=== PATIENT | female | born 1980 | race Caucasian/White ===

== ENCOUNTER 2018-05-20 17:19 | Outpatient (REF) | payer MEDICARE, MEDICAID, SELFPAY ==
[2018-05-20 21:30] LABS: HCT 36.7 % (36.0-46.0); HGB 12.5 g/dL (12.0-15.5); Mean Corp. HGB Concentration 34.1 g/dL (32.0-36.0); Mean Corpuscular Volume 96.8 fL (80-95); Mean Platelet Volume 10.3 fL (8.0-11.0); Platelet Count 281 x1000/uL (130-400); RBC 3.79 m/cumm (4.00-5.20); White Blood Cell Count 8.63 k/cumm (4.4-10.8)
[2018-05-20 21:49] LABS: TSH (W/Ref FT4) 1.89 uIU/mL (0.358-3.74)
[2018-05-21 06:03] LABS: Vitamin D 25 Total 39.5 ng/ml (30-100)
[2018-05-21 19:38] LABS: Vitamin B12 360 pg/mL (193-986)
== END 2018-05-20 17:39 ==
LOC: NCHCN 17:19
PROVIDERS: Visit Provider Family Medicine
DX: R53.83 Other fatigue (principal); E55.9 Vitamin D deficiency, unspecified; R63.5 Abnormal weight gain; D75.89 Other specified diseases of blood and blood-forming organs
CPT/HCPCS: 82306; 85027; 82607; 84443

== ENCOUNTER 2019-04-28 17:35 | Outpatient (REF) | payer MEDICARE, MEDICAID, SELFPAY ==
[2019-04-28 21:27] LABS: HCT 36.9 % (36.0-46.0); HGB 12.3 g/dL (12.0-15.5); Mean Corp. HGB Concentration 33.3 g/dL (32.0-36.0); Mean Corpuscular Hemoglobin 32.2 pg (27.0-33.0); Mean Corpuscular Volume 96.6 fL (80-95); Platelet Count 377 x1000/uL (130-400); RBC 3.82 m/cumm (4.00-5.20); White Blood Cell Count 8.69 k/cumm (4.4-10.8)
[2019-04-28 22:06] LABS: ALT 29 U/L (14-59); AST 17 U/L (15-37); Albumin 3.9 g/dL (3.4-5.0); Alkaline Phosphatase 71 U/L (46-116); Anion Gap 9.5 mmol/L (3-11); BUN 14 mg/dL (7-18); Bilirubin, Total 0.2 mg/dL (0.2-1.0); CO2 26.5 mmol/L (21.0-32.0); CREATININE 0.82 mg/dL (0.55-1.02); Calcium 8.9 mg/dL (8.5-10.1); Chloride 107 mmol/L (98-107); Glucose 87 mg/dL (70-100); Potassium 3.7 mmol/L (3.5-5.1); Sodium 143 mmol/L (136-145); TSH 1.66 uIU/mL (0.36-3.74); Total Protein 7.3 g/dL (6.4-8.2); Vitamin B12 556 pg/mL (193-986)
[2019-04-29 05:36] LABS: Vitamin D 25 Total 34.2 ng/ml (30-100)
== END 2019-04-28 17:55 ==
LOC: NCHCN 17:35
PROVIDERS: PCP Family Medicine; Visit Provider Family Medicine
DX: R94.6 Abnormal results of thyroid function studies (principal); D75.89 Other specified diseases of blood and blood-forming organs; E55.9 Vitamin D deficiency, unspecified; E53.8 Deficiency of other specified B group vitamins; K59.00 Constipation, unspecified; E66.9 Obesity, unspecified
CPT/HCPCS: 80053; 82306; 85027; 82607; 83735; 84443

== ENCOUNTER 2020-03-07 19:11 | Outpatient (REF) | payer MEDICARE, MEDICAID, SELFPAY ==
[2020-03-07 21:12] LABS: HCT 38.3 % (36.0-46.0); HGB 12.7 g/dL (12.0-15.5); Mean Corp. HGB Concentration 33.2 g/dL (32.0-36.0); Mean Corpuscular Hemoglobin 31.1 pg (27.0-33.0); Mean Corpuscular Volume 93.6 fL (80-95); Platelet Count 355 x1000/uL (130-400); RBC 4.09 m/cumm (4.00-5.20); RBC Distribution Width 12.7 % (11.7-14.6); White Blood Cell Count 7.38 k/cumm (4.4-10.8)
[2020-03-07 22:06] LABS: ALT 26 U/L (14-59); AST 15 U/L (15-37); Alkaline Phosphatase 72 U/L (46-116); Anion Gap 12.2 mmol/L (3-11); Bilirubin, Total 0.3 mg/dL (0.2-1.0); CO2 22.8 mmol/L (21.0-32.0); CREATININE 0.63 mg/dL (0.55-1.02); Calcium 9.3 mg/dL (8.5-10.1); Chloride 105 mmol/L (98-107); Glucose 99 mg/dL (74-106); Potassium 4.4 mmol/L (3.5-5.1); Sodium 140 mmol/L (136-145); TSH (W/Ref FT4) 1.99 uIU/mL (0.36-3.74); Total Protein 7.3 g/dL (6.4-8.2); Vitamin B12 428 pg/mL (193-986)
[2020-03-07 22:19] LABS: BUN 11 mg/dL (7-18)
[2020-03-09 04:41] LABS: Vitamin D 25 Total 23.3 ng/ml (30-100)
== END 2020-03-07 19:31 ==
LOC: NCHCN 19:11
PROVIDERS: PCP Family Medicine; Visit Provider Family Medicine
DX: E55.9 Vitamin D deficiency, unspecified (principal); R94.6 Abnormal results of thyroid function studies; R56.9 Unspecified convulsions; E53.8 Deficiency of other specified B group vitamins; E66.9 Obesity, unspecified
CPT/HCPCS: 80053; 82306; 85027; 82607; 84443

== ENCOUNTER 2021-07-13 10:00 | Outpatient (REF) | payer MEDICARE, MEDICAID, SELFPAY ==
[2021-07-13 16:02] LABS: TSH (W/Ref FT4) 1.39 uIU/mL (0.36-3.74); Vitamin B12 410 pg/mL (193-986)
[2021-07-16 09:24] LABS: Vitamin D 25 Total 27.4 ng/mL (30-100)
== END 2021-07-13 10:01 | disposition home or self-care (01) ==
LOC: NCHCN 10:00
PROVIDERS: PCP Family Medicine; Visit Provider Family Medicine
DX: E53.8 Deficiency of other specified B group vitamins (principal); R94.6 Abnormal results of thyroid function studies; E55.9 Vitamin D deficiency, unspecified
CPT/HCPCS: 82306; 82607; 84443